=== PATIENT | female | born 1960 | race Caucasian/White ===

== ENCOUNTER 2016-07-28 00:38 | Emergency (ER) | payer SELFPAY ==
[~2016-07-28] VITALS: Ht 170.2 cm; Wt 50.0 kg
[2016-07-28 00:39] VITALS: BP 124/80
== END 2016-07-28 01:25 | disposition left against medical advice (07) ==
LOC: EMS 00:40
DX: Z00.8 Encounter for other general examination (principal); J40 Bronchitis, not specified as acute or chronic; E05.90 Thyrotoxicosis, unspecified without thyrotoxic crisis or storm; F17.210 Nicotine dependence, cigarettes, uncomplicated; Z53.21 Procedure and treatment not carried out due to patient leaving prior to being seen by health care provider

== ENCOUNTER 2016-07-28 13:06 | Emergency (ER) | payer OTHER ==
[~2016-07-28] VITALS: Ht 170.2 cm; Wt 62.0 kg
[2016-07-28] MEDS ORDERED: GENTAMICIN SULFATE 0.3% OPHTHALMIC SOLUTION 5 ML OD ONE (14:45)
[2016-07-28 18:05] VITALS: BP 112/75
== END 2016-07-28 18:08 | disposition home or self-care (01) ==
LOC: EMS 13:06
DX: S82.51XA Displaced fracture of medial malleolus of right tibia, initial encounter for closed fracture (principal); E05.90 Thyrotoxicosis, unspecified without thyrotoxic crisis or storm; J40 Bronchitis, not specified as acute or chronic; F17.210 Nicotine dependence, cigarettes, uncomplicated; Z88.1 Allergy status to other antibiotic agents; Y04.0XXA Assault by unarmed brawl or fight, initial encounter; Y93.89 Activity, other specified; Y92.89 Other specified places as the place of occurrence of the external cause; Y99.8 Other external cause status
CPT/HCPCS: 29515; 70450; 99284